=== PATIENT | female | born 1985 | race Caucasian/White ===

== ENCOUNTER 2021-10-13 04:08 | Inpatient (IN) | payer OTHER, SELFPAY ==
[2021-10-13] VITALS (15 sets, daily range): BP systolic 97–116; BP diastolic 56–73; PULSE 62–83; RESP 14–16; TEMP 36.7–37; O2SAT 98–99; BMI 33.6
[2021-10-13] MEDS: AMPICILLIN 2 GM in 0.9 % SODIUM CHLORIDE Mini-bag 100 ML IVPB (04:24)
--- NOTE | 2021-10-13 04:30 | PM.OBHPLI ---
OB - H&P: HPI Labor/Induction History of Present Illness Date Seen: 10/13/21 Chief Complaint: The patient is a 36 year old 4 para 3 at 40+ weeks gestation who presents with contractions. Chief complaint: MATERNITY : 4 Para: 3 Narrative: Lisa Edmonds is a 36 year old female here with contractions History of Present Dating criteria: based on LMP (01/03/21) care: good care Ultrasounds: normal mid trimester US Medical complications: none Labs Blood type: A (-) negative Rubella: immune RPR/VDLR: nonreactive GBS status: positive HBsAG: negative Review of Systems Status of ROS: Reports: 10 or more systems reviewed and unremarkable except as noted in History and below Meds Home Medications and Allergies Home Medications Medication Instructions Recorded Confirmed Type vit no.95-ferrous 1 tab PO DAILY 10/13/21 10/13/21 History fumarate 28 mg-folic acid 800 mcg tablet ( Multivitamins) Allergies Allergy/AdvReac Type Severity Reaction Status Date / Time Shellfish Allergy Severe Uncoded 10/13/21 04:35 OB - H&P: Exam Physical Exam: Vital signs: Pulse BP 78 116/60 10/13/21 04:04 10/13/21 04:04 Constitutional: Constitutional: no acute distress Routine HEENT Exam: Head: Present atraumatic and normal inspection Eye: Present EOMI and normal appearance ENT: Present mucous membranes moist Routine Respiratory Exam: Respiratory: Present CTA bilaterally Routine Cardiovascular Exam: Cardiovascular: RRR Routine Abdominal Exam: Comments: Gravid abdomen Routine Exam: Comments: 6 cm by last nurse check when she arrived Detailed Labor and Delivery Exam: Patient Gravid: yes Dilation (cm): 6 Routine Extremities Exam: Extremities: Present full ROM Routine Skin Exam: Present intact and warm Routine Neurological Exam: Present alert, oriented X3 and normal tone Routine Psychiatric Exam: Present normal affect and normal thought process OB - Problem Based A/P Additional Plan (1) Vaginal delivery: Status: Acute (2) Group B streptococcal infection in : Status: Acute Plan in active labor Delivery/Labor/Induction Plan Plan: expectant management
[2021-10-13 05:22] LABS: SARS PCR* Negative SARS-CoV-2 (Negative)
--- NOTE | 2021-10-13 07:04 | PM.OBPNVD1 ---
OB - PN:Subj Subjective Date Seen: 10/13/21 OB - PN: Obj Exam Physical Exam: Vital signs: Temp Pulse Resp BP 98.6 F 71 16 109/73 10/13/21 06:16 10/13/21 07:03 10/13/21 04:04 10/13/21 07:03 OB - PN: Obj Data Labs Labs: Laboratory Results - last 24 hr 10/13/21 04:06 SARS-CoV-2 (PCR) Negative SARS-CoV-2
[2021-10-13] MEDS: OXYTOCIN 10 UNIT/ML INJ IM (07:05)
--- NOTE | 2021-10-13 07:08 | PM.OBPRCVD ---
Procedure Delivery date: 10/13/21 Procedure Done: Global Procedure Details: G4 P now 4 at 40.3 weeks gestation admitted for onset of labor History: regular uncomplicated care. Group B strep mom abx given but delivery prior to 4 hour time Labor began at 0400 on 10/13/21 SROM at 0638 clear fluid Mom was Complete at 0637 on 10/13/21 Started pushing at 0639 on 10/13/21 Live born female delivered in vertex position Nuchal cord X1 present and reduced prior to delivery of shoulders Delayed 3 vessel cord doubly clamped and cut after delivery. Placenta delivered complete at 0652 Perineum without vaginal tear or labial tear Cervix examined and no clots found QBL 25 Pitocin given IM since IV failure Events: Other (normal care ) Gender: Female presentation: vertex Placental Delivery Description: Spontaneous Cord Description: 3 Vessels
[2021-10-14 05:06] VITALS: BP 112/75; PULSE 74; RESP 16; TEMP 36.6; O2SAT 98
[2021-10-14 07:19] LABS: Hemoglobin* 11.7 gm/dL (12.0-16.0)
[2021-10-14 09:33] VITALS: BP 107/65; PULSE 74; RESP 18; O2SAT 98
--- NOTE | 2021-10-14 10:43 | PM.DS1 ---
DS: Providers Provider Date of admission: 10/13/21 04:08 Primary care physician: Ruth Ibrahim MD Admitting Clinician: Ruth Ibrahim MD Attending Physician on discharge: Ruth Ibrahim MD DS: Summary Time Spent with Patient Time attestation: Total time spent providing and/or coordinating discharge services: Exam Const: Vital Signs, click to edit/add: Vital Signs - 24 hr 10/13/21 11:30 10/13/21 16:00 10/13/21 20:02 Temperature 98.0 F 98.0 F 98.0 F Pulse Rate [Pulse Oximeter] 77 64 68 Respiratory Rate 14 14 14 Blood Pressure [Le ft Arm] 105/66 97/67 100/64 Pulse Oximetry 98 99 99 Oxygen Delivery Me thod Room Air Room Air Room Air 10/13/21 22:57 10/14/21 05:06 10/14/21 09:33 Temperature 98.0 F 97.8 F Pulse Rate [Pulse Oximeter] 68 74 74 Respiratory Rate 14 16 18 Blood Pressure [Le ft Arm] 109/72 112/75 107/65 Pulse Oximetry 99 98 98 Oxygen Delivery Me thod Room Air Room Air Room Air DS: Data Data Completed and Pending Labs on day of discharge: Labs from last 24 hours 10/14/21 07:00 Hgb 11.7 L Discharge Plan Discharge Date of Admission: 10/13/21 04:08 Attending Physician on Admission: Ruth Ibrahim Primary Care Provider: Ruth Ibrahim Discharge Medications: No Action PNV cmb#95-ferrous fumarate-FA [ Multivitamins] 28 mg iron- 800 mcg tablet 1 tab PO DAILY Follow Up Appointments: Ruth Ibrahim MD [Primary Care Provider] -
--- NOTE | 2021-10-14 10:44 | P.DS_ITS ---
DS: Providers Provider Date Seen: 10/14/21 Date of admission: 10/13/21 04:08 Primary care physician: Ruth Ibrahim MD Admitting Clinician: Ruth Ibrahim MD Attending Physician on discharge: Ruth Ibrahim MD Date of Discharge: 10/14/21 DS: Diagnosis Discharge Diagnosis (1) Group B streptococcal infection in : Status: Acute (2) Vaginal delivery: Status: Acute DS: Medications Discharge Medications Other Medication Instructions: Stool softener as needed up to twice daily Exam Narrative: Exam Narrative: HEENT: Eyes: no scleral icterus redness Ears: normal external ears Nose: no drainage Neck: normal Heart RRR no murmur Lungs: clear Abdomen: pos bowel sounds exam uterine fundus below umbilicus Skin: pink Ext: no swelling Mental status: appropriate Const: Vital Signs, click to edit/add: Vital Signs - 24 hr 10/13/21 11:30 10/13/21 16:00 10/13/21 20:02 Temperature 98.0 F 98.0 F 98.0 F Pulse Rate [Pulse Oximeter] 77 64 68 Respiratory Rate 14 14 14 Blood Pressure [Le ft Arm] 105/66 97/67 100/64 Pulse Oximetry 98 99 99 Oxygen Delivery Me thod Room Air Room Air Room Air 10/13/21 22:57 10/14/21 05:06 10/14/21 09:33 Temperature 98.0 F 97.8 F Pulse Rate [Pulse Oximeter] 68 74 74 Respiratory Rate 14 16 18 Blood Pressure [Le ft Arm] 109/72 112/75 107/65 Pulse Oximetry 99 98 98 Oxygen Delivery Me thod Room Air Room Air Room Air OB - DS: Summary Hospital Course Hospital Course: The patient is a 36 year old G [] P [] at [] weeks gestation that was admitted to the Center on 10/13/21 for []. She had an [uncomplicated/complicated] [vaginal/] delivery. She delivered a viable [male/female] infant. She is [breast/bottle] feeding. the patient has done well. Peripartum Data delivery method: Vaginal Laceration description: None Episiotomy description: None [place] Gender: Female Infant Discharge Plan: Home Time Spent with Patient Time attestation: Total time spent providing and/or coordinating discharge services: Discharge Plan Discharge Disposition: Home, Self-Care Date of Admission: 10/13/21 04:08 Attending Provider on Discharge: Ruth Ibrahim Primary Care Provider: Ruth Ibrahim Condition: Stable Anticipated Discharge Date/Time: 10/14/21 18:30 Discharge Medications: New acetaminophen 500 mg Tablet 1,000 mg PO Q6H PRN (Reason: pain/fever) Qty: 0 0RF docusate sodium 100 mg Capsule 100 mg PO DAILY Qty: 0 0RF ibuprofen 600 mg Tablet 600 mg PO Q6H PRNQty: 0 0RF Continued PNV cmb#95-ferrous fumarate-FA [ Multivitamins] 28 mg iron- 800 mcg tablet 1 tab PO DAILY Discharge Orders: Discharge Order (Routine); Ordered 10/14/21 Ordered By: Ruth Ibrahim Patient Education: OB Vaginal/Breast Feeding Follow Up Appointments: Ruth Ibrahim MD [Primary Care Provider] - ( in 6 wks for post check) Forms: [employer] Info Instructions
[2021-10-14] MEDS: DOCUSATE SODIUM 100 MG CAPSULE PO (11:29)
[2021-10-14 13:19] VITALS: BP 106/67; PULSE 61; RESP 16; TEMP 37; O2SAT 98
== END 2021-10-14 19:02 | disposition home or self-care (01) | DRG 807 ==
LOC: OB OUT 04:09 → OB 04:09
PROVIDERS: Admitting Provider Family Medicine; PCP Family Medicine; Visit Provider Family Medicine
DX: O98.82 Other maternal infectious and parasitic diseases complicating childbirth (principal); Z37.0 Single live birth; B95.1 Streptococcus, group B, as the cause of diseases classified elsewhere; Z3A.40 40 weeks gestation of pregnancy
CPT/HCPCS: 36415; 85018; 87635; A9270; J0290; J2590